=== PATIENT | male | born 1950 | race Caucasian/White ===

== ENCOUNTER 2022-05-01 08:52 | Day surgery (SDC) | payer MEDICARE, OTHER ==
[~2022-05-01 08:52] MED LIST: Apraclonidine 0.5% Ophth Soln 5 ML Bot EYELF ONE; Balanced Salt Solution Ophth Irrig 500 ML Bottle IOCULAR ONE; Chondroitin Sulfate/Hyaluronate Sodium Ophth Inj 0.75 ML Syringe EYELF ONE; Dexamethasone/Neomycin/Polymyxin B Ophth Oint 3.5 GM Tube EYELF ONE; Diclofenac Sodium 0.1% Ophth Soln 5 ML Bottle EYELF ONE; Lidocaine 1% 30 ML SDV ONE; Povidone-Iodine 5% Sterile Ophth Soln 30 ML Bottle EYELF ONE; Proparacaine 0.5% Ophth Soln 15 ML Bottle EYELF ONE; Vancomycin 500 MG SDV EYELF ONE
[2022-05-01] MEDS ORDERED: Midazolam 1 MG/ML 2 ML SDV IV ONE (08:53)
[2022-05-01] MEDS ORDERED: Sodium Chloride 0.9% 10 ML Syringe IV ONE (08:53)
[2022-05-01] MEDS ORDERED: Dexamethasone 4 MG/ML SDV IV ONE (08:53)
[2022-05-01] MEDS ORDERED: Moxifloxacin 0.5% Ophth Soln 3 ML Bottle EYELF ONE (09:15)
[2022-05-01] MEDS ORDERED: Tropicamide 1% Ophth Soln 15 ML Bottle EYELF ONE (09:15)
[2022-05-01] MEDS ORDERED: Proparacaine 0.5% Ophth Soln 15 ML Bottle EYELF ONE ×2 (09:15→10:53)
[2022-05-01] MEDS ORDERED: Phenylephrine 10% Ophth Soln 5 ML Bot EYELF PRN (09:15)
[2022-05-01] MEDS ORDERED: Cataract Ophth Solution EYELF ONE (09:15)
[2022-05-01] MEDS ORDERED: Acetaminophen/Codeine 300-30 MG Tab PO PRN (09:15)
[2022-05-01] MEDS ORDERED: Acetaminophen 325 MG Tab PO PRN (09:15)
[2022-05-01] MEDS ORDERED: Sodium Chloride 0.9% 10 ML Syringe FLUSH PRN (09:15)
[2022-05-01] MEDS ORDERED: Ondansetron 4 MG/2 ML SDV IVPUSH PRN (09:15)
[2022-05-01] MEDS ORDERED: Povidone-Iodine 5% Sterile Ophth Soln 30 ML Bottle EYELF ONE ×2 (09:15→10:53)
[2022-05-01] MEDS ORDERED: Timolol Maleate 0.5% Ophth Soln 5 ML Bottle EYELF ONE (09:15)
[2022-05-01] MEDS ORDERED: Apraclonidine 0.5% Ophth Soln 5 ML Bot EYELF ONE (10:53)
[2022-05-01] MEDS ORDERED: Diclofenac Sodium 0.1% Ophth Soln 5 ML Bottle EYELF ONE (10:53)
[2022-05-01] MEDS ORDERED: Balanced Salt Solution Ophth Irrig 500 ML Bottle IOCULAR ONE (10:54)
[2022-05-01] MEDS ORDERED: Dexamethasone/Neomycin/Polymyxin B Ophth Oint 3.5 GM Tube EYELF ONE (10:54)
[2022-05-01] MEDS ORDERED: Lidocaine 1% 30 ML SDV ONE (10:54)
[2022-05-01] MEDS ORDERED: Vancomycin 500 MG SDV EYELF ONE (10:54)
[2022-05-01] MEDS ORDERED: Chondroitin Sulfate/Hyaluronate Sodium Ophth Inj 0.75 ML Syringe EYELF ONE (10:55)
[2022-05-01 11:36] VITALS: BP 138/79; PULSE 65
== END 2022-05-01 11:37 | disposition home or self-care (01) ==
LOC: DL.SDS 08:52
PROVIDERS: ATTEND Ophthalmology
DX: H25.812 Combined forms of age-related cataract, left eye (principal); M19.90 Unspecified osteoarthritis, unspecified site; M25.562 Pain in left knee; G89.29 Other chronic pain; K21.9 Gastro-esophageal reflux disease without esophagitis; I10 Essential (primary) hypertension; E78.5 Hyperlipidemia, unspecified; E87.6 Hypokalemia; G47.33 Obstructive sleep apnea (adult) (pediatric); N40.1 Benign prostatic hyperplasia with lower urinary tract symptoms; R35.1 Nocturia; Z79.899 Other long term (current) drug therapy; Z79.82 Long term (current) use of aspirin; Z98.890 Other specified postprocedural states; Z87.891 Personal history of nicotine dependence
CPT/HCPCS: 00142; A9270-GY; J1100; J2250; J3370; J3490

== ENCOUNTER 2022-06-12 09:12 | Day surgery (SDC) | payer MEDICARE, OTHER ==
[~2022-06-12 09:12] MED LIST changes: -Apraclonidine 0.5% Ophth Soln 5 ML Bot EYELF ONE; +Apraclonidine 0.5% Ophth Soln 5 ML Bot EYERT ONE; +Cataract Ophth Solution EYERT ONE; -Chondroitin Sulfate/Hyaluronate Sodium Ophth Inj 0.75 ML Syringe EYELF ONE; +Chondroitin Sulfate/Hyaluronate Sodium Ophth Inj 0.75 ML Syringe EYERT ONE; -Dexamethasone/Neomycin/Polymyxin B Ophth Oint 3.5 GM Tube EYELF ONE; +Dexamethasone/Neomycin/Polymyxin B Ophth Oint 3.5 GM Tube EYERT ONE; -Diclofenac Sodium 0.1% Ophth Soln 5 ML Bottle EYELF ONE; +Diclofenac Sodium 0.1% Ophth Soln 5 ML Bottle EYERT ONE; -Povidone-Iodine 5% Sterile Ophth Soln 30 ML Bottle EYELF ONE; +Povidone-Iodine 5% Sterile Ophth Soln 30 ML Bottle EYERT ONE; -Proparacaine 0.5% Ophth Soln 15 ML Bottle EYELF ONE; +Proparacaine 0.5% Ophth Soln 15 ML Bottle EYERT ONE; +Sodium Chloride 0.9% 10 ML Syringe FLUSH PRN; -Vancomycin 500 MG SDV EYELF ONE; +Vancomycin 500 MG SDV EYERT ONE
[2022-06-12] MEDS ORDERED: Midazolam 1 MG/ML 2 ML SDV IV ONE (09:13)
[2022-06-12] MEDS ORDERED: Dexamethasone 4 MG/ML SDV IV ONE (09:13)
[2022-06-12] MEDS ORDERED: Sodium Chloride 0.9% 10 ML Syringe IV ONE (09:13)
[2022-06-12] MEDS ORDERED: Ondansetron 4 MG/2 ML SDV IVPUSH PRN (09:15)
[2022-06-12] MEDS ORDERED: Tropicamide 1% Ophth Soln 15 ML Bottle EYERT ONE (09:15)
[2022-06-12] MEDS ORDERED: Moxifloxacin 0.5% Ophth Soln 3 ML Bottle EYERT ONE (09:15)
[2022-06-12] MEDS ORDERED: Timolol Maleate 0.5% Ophth Soln 5 ML Bottle EYERT ONE (09:15)
[2022-06-12] MEDS ORDERED: Acetaminophen 325 MG Tab PO PRN (09:15)
[2022-06-12] MEDS ORDERED: Acetaminophen/Codeine 300-30 MG Tab PO PRN (09:15)
[2022-06-12] MEDS ORDERED: Povidone-Iodine 5% Sterile Ophth Soln 30 ML Bottle EYERT ONE ×2 (09:15→10:34)
[2022-06-12] MEDS ORDERED: Phenylephrine 10% Ophth Soln 5 ML Bot EYERT PRN (09:15)
[2022-06-12] MEDS ORDERED: Proparacaine 0.5% Ophth Soln 15 ML Bottle EYERT ONE (10:33)
[2022-06-12] MEDS ORDERED: Apraclonidine 0.5% Ophth Soln 5 ML Bot EYERT ONE (10:39)
[2022-06-12] MEDS ORDERED: Diclofenac Sodium 0.1% Ophth Soln 5 ML Bottle EYERT ONE (10:40)
[2022-06-12] MEDS ORDERED: Vancomycin 500 MG SDV EYERT ONE (10:47)
[2022-06-12] MEDS ORDERED: Dexamethasone/Neomycin/Polymyxin B Ophth Oint 3.5 GM Tube EYERT ONE (10:47)
[2022-06-12] MEDS ORDERED: Balanced Salt Solution Ophth Irrig 500 ML Bottle IOCULAR ONE (10:47)
[2022-06-12] MEDS ORDERED: Lidocaine 1% 30 ML SDV ONE (10:47)
[2022-06-12] MEDS ORDERED: Chondroitin Sulfate/Hyaluronate Sodium Ophth Inj 0.75 ML Syringe EYERT ONE (10:48)
[2022-06-12 11:45] VITALS: BP 154/89; PULSE 67
== END 2022-06-12 11:43 | disposition home or self-care (01) ==
LOC: DL.SDS 09:12
PROVIDERS: ATTEND Ophthalmology
DX: H25.811 Combined forms of age-related cataract, right eye (principal); I10 Essential (primary) hypertension; E78.5 Hyperlipidemia, unspecified; E87.6 Hypokalemia; M19.90 Unspecified osteoarthritis, unspecified site; G47.33 Obstructive sleep apnea (adult) (pediatric); K21.9 Gastro-esophageal reflux disease without esophagitis; M25.561 Pain in right knee; M25.562 Pain in left knee; G89.29 Other chronic pain; N40.1 Benign prostatic hyperplasia with lower urinary tract symptoms; R35.1 Nocturia; R73.09 Other abnormal glucose; Z79.899 Other long term (current) drug therapy; Z79.82 Long term (current) use of aspirin; Z98.890 Other specified postprocedural states; Z87.891 Personal history of nicotine dependence
CPT/HCPCS: 00142; A9270-GY; J1100; J2250; J3370; J3490; V2787-GY